=== PATIENT | female | born 1990 | race Two or more races ===

== ENCOUNTER 2025-01-02 07:33 | Emergency (ER) | payer OTHER ==
[~2025-01-02] VITALS: Ht 157.5 cm; Wt 82.5 kg
[2025-01-02] MEDS: ACETAMINOPHEN 325 MG TAB PO ONE (07:44)
[2025-01-02] MEDS: SODIUM CHLORIDE 0.9% 1,000 ML IV ONE (07:45)
--- NOTE | 2025-01-02 07:54 | ED.PDOC ---
GI ASSESSMENT HPI Comments 28-year-old female presented to the emergency department complaining of left flank pain and left abdominal pain for four days with a high fever chills body ache and fatigue Chief Complaint: Flank Pain Time Seen by MD: 07:39 Reviewed Notes: Nurses Notes, Medications, Allergies Allergies: Coded Allergies: NO KNOWN ALLERGIES (Unverified , 01/02/25) Information Source: Patient Mode of Arrival: Ambulatory Timing: Days Duration: Since onset Quality: Aching, Cramping Vomitus: Other Stool: Normal Severity: Moderate Recent: None Recent Hx of: None Pain Location: Other (Left flank and left abdominal pain) Modifying Factors: Nothing Associated sign and symptoms: Abdominal Pain, Fever Past Medical History PAST MEDICAL HISTORY: Denies Surgical History: Denies all surgeries MANAGER OF CASE MANAGEMENT History: No Pertinent MANAGER OF CASE MANAGEMENT History Family History Family History: Reviewed,noncontributory to illness, No family hx of Cancer, No family hx of DM, No family hx of Heart min, No family hx of HTN, No family hx ofKidney min, No family hx of Liver min, No family hx of Lung min, No family hx of Stroke Social History Smoker: Non-Smoker Alcohol: Denies ETOH Use Drugs: Denies Drug Use Lives In: Home Constitutional: reports: chills, fatigue, fever; denies: diaphoresis, malaise, sweats, weakness, others EENTM: denies: blurred vision, double vision, ear bleeding, ear discharge, ear drainage, ear pain, ear ringing, eye pain, eye redness, hearing loss, mouth pain, mouth swelling, nasal discharge, nose bleeding, nose congestion, nose pain, photophobia, tearing, throat pain, throat swelling, voice changes, others Respiratory: denies: cough, hemoptysis, orthopnea, SOB at rest, shortness of breath, SOB with excertion, stridor, wheezing, others Cardiovascular: denies: chest pain, dizzy spells, diaphoresis, Dyspnea on exertion, edema, irregular heart beat, left arm pain, lightheadedness, palpitations, PND, syncope, others Gastrointestinal: reports: abdominal pain Genitourinary: reports: flank pain, pain; denies: abnormal vagina bleeding, burning, dyspareunia, dysuria, frequency, hematuria, incontinence, , vagina discharge, urgency, others Neurological: denies: dizziness, fainting, headache, left sided numbness, left sided weakness, numbness, paresthesia, pre-existing deficit, right sided numbness, right sided weakness, seizure, speech problems, tingling, tremors, weakness, others Musculoskeletal: reports: back pain; denies: gout, joint pain, joint swelling, muscle pain, muscle stiffness, neck pain, others Integumetry: denies: bruises, change in color, change in hair/nails, dryness, laceration, lesions, lumps, rash, wounds, others Allergic/Immunocompromised: denies: Difficulty Healing, Frequent Infections, Hives, Itching, others Hematologic/Lymphatic: denies: anemia, blood clots, easy bleeding, easy bruising, swollen glands, others Endocrine: denies: excessive hunger, excessive sweating, excessive thirst, excessive urination, flushing, intolerance to cold, intolerance to heat, unexplained weight gain, unexplained weight loss, others Psychiatric: denies: anxiety, bipolar disorder, depression, hopeless, panic disorder, schizophrenia, sleepless, suicidal, others All Other Systems: Reviewed and Negative Physical Exam General Appearance: No Apparent Distress, Obese HEENT: Normal ENT Inspection, PERRL/EOMI Neck: Full Range of Motion, Non-Tender, Normal, Normal Inspection Respiratory: Chest Non-Tender, Lungs Clear, No Accessory Muscle Use, No Respiratory Distress, Normal Breath Sounds Cardiovascular: No Edema, No JVD, No Murmur, No Gallop, Normal Peripheral Pulses, Regular Rate/Rhythm Breast Exam: Deferred Gastrointestinal: LLQ, LUQ, No Organomegaly, No Pulsatile Mass, Normal Bowel Sounds, Other (Left flank pain) Genitalia: Deferred Pelvic: Deferred Rectal: Deferred Extremities: No calf tenderness, Normal capillary refill, Normal inspection, Normal range of motion, Non-tender, No pedal edema Neurologic: Alert, clinical rehab specialist II-XII nml as Tested, No Motor Deficits, Normal Affect, Normal Mood, No Sensory Deficits Cerebellar Function: Normal Reflexes: Normal Skin: Dry, Normal Color, Warm Peripheral Pulses: 1+ carotid (R), 1+ carotid (L) Lymphatic: No Adenopathy Was a procedure done? Was a procedure done?: No GI differential Dx Differential Diagnosis: Diverticular disease, Inflammatory BD, UTI, Dehydration, Diabetes/ DKA, Drug toxicity, Electrolyte Imbalance, Kidney Stone X-Ray, Labs, Meds, VS Vital Signs Date Time Temp Pulse Resp B/P (MAP) Pulse Ox O2 Delivery O2 Flow Rate FiO2 01/02/25 10:15 102 17 97 Room Air 01/02/25 10:15 98.4 102 17 121/79 (93) 97 98.4 01/02/25 09:19 114 16 97 Room Air* 0 21 01/02/25 07:44 100.5 01/02/25 07:35 100.5 121 18 160/95 (116) 95 100.5 01/02/25 07:35 100.5 121 18 160/95 (116) 95 100.5 Lab Test 01/02/25 08:02 01/02/25 08:00 Range/Units Urine Color Colorless Yellow Urine Clarity Clear Clear Urine pH 6.5 5.0-9.0 Urine Specific [place] 1.009 1.001-1.035 Urine Protein Negative Negative Urine Ketones Negative Negative Urine Blood 2+ H Negative /uL Urine Nitrite Negative Negative Urine Bilirubin Negative Negative Urine Urobilinogen Normal Negative mg/dL Urine Leukocyte Esterase 2+ Negative /uL Urine RBC 17 0 - 4 /hpf Urine Microscopic WBC 77 H 0-5 /HPF Urine Squamous Epithelial Cells Few <5 /hpf Urine Bacteria Few H None Seen /hpf Urine Glucose Normal Normal mg/dL White Blood Count 14.4 H 4.4-10.8 10^3/uL Red Blood Count 4.41 4.0-5.20 10^6/uL Hemoglobin 13.0 12.2-16.2 g/dL Hematocrit 38.4 36.0-46.0 % Mean Corpuscular Volume 87.1 80.0-100.0 fL Mean Corpuscular Hemoglobin 29.4 28.0-32.0 pg Mean Corpuscular Hemoglobin Concent 33.7 32.0-36.0 g/dL Red Cell Distribution Width 13.4 11.8-14.3 % Platelet Count 197 140-450 10^3/uL Mean Platelet Volume 8.3 6.9-10.8 fL Neutrophils (%) (Auto) 85.0 H 37.0-80.0 % Lymphocytes (%) (Auto) 8.3 L 10.0-50.0 % Monocytes (%) (Auto) 6.2 0.0-12.0 % Eosinophils (%) (Auto) 0.2 0.0-7.0 % Basophils (%) (Auto) 0.3 0.0-2.0 % Neutrophils # (Auto) 12.2 H 1.6-8.6 10 ^3/uL Lymphocytes # (Auto) 1.2 0.4-5.4 10 ^3/uL Monocytes # (Auto) 0.9 0-1.3 10 ^3/uL Eosinophils # (Auto) 0 0-0.8 10 ^3/uL Basophils # (Auto) 0 0-0.2 10 ^3/uL Nucleated Red Blood Cells 0.1 % Sodium Level 137 136-145 mmol/L Potassium Level 3.7 3.5-5.1 mmol/L Chloride Level 102 98-107 mmol/L Carbon Dioxide Level 25 20-31 mmol/L Anion Gap 10 5-15 Blood Urea Nitrogen 9 9-23 mg/dL Creatinine 0.94 0.550-1.02 mg/dL Glomerular Filtration Rate Calc 82 >90 mL/min BUN/Creatinine Ratio 9.6 L 10.0-20.0 Serum Glucose 122 H 74-106 mg/dL Calcium Level 9.8 8.7-10.4 mg/dL Current Medications Medications (Trade) Dose Ordered Sig/Paz Route Start Time Stop Time Status Last Admin Acetaminophen (Tylenol Tablet) 650 mg ONCE ONCE PO 01/02/25 07:45 01/02/25 07:46 DC 01/02/25 07:44 Sodium Chloride 1,000 ml @ 150 mls/hr Q6H40M ONCE IV 01/02/25 07:45 01/02/25 14:24 01/02/25 07:45 Ibuprofen (Motrin Tablet) 600 mg ONCE ONCE PO 01/02/25 07:45 01/02/25 07:47 DC 01/02/25 09:17 X-Ray, Labs, Meds, VS Comment Course in the emergency department eventful patient came in complaining of high fever for past four days with body ache fatigue and left flank pain Temperature is 100.5 CBC [id number] with 85% neutrophils and normal H&H BNP is normal Urine shows 2+ blood 2+ leukocyte esterase and bacteria Patient will be discharged home to follow up with her PCP Time of 1ST Reevaluation: 07:50 Reevaluation 1ST: Unchanged Time of 2ND Reevaluation: 12:11 Reevaluation 2ND: Unchanged Consultation: PCP Patient Education/Counseling: Diagnosis, Treatment, Prognosis Family Education/Counseling: Diagnosis, Treatment, Prognosis, No Family Present SEPSIS Sepsis Screen Physician Orders Heplock Iv (01/02/25 07:45) Sodium Chloride 0.9% (01/02/25 07:45) Vital Signs Date Time Temp Pulse Resp B/P (MAP) Pulse Ox O2 Delivery O2 Flow Rate FiO2 01/02/25 10:15 102 17 97 Room Air 01/02/25 10:15 98.4 102 17 121/79 (93) 97 98.4 01/02/25 09:19 114 16 97 Room Air* 0 21 01/02/25 07:44 100.5 01/02/25 07:35 100.5 121 18 160/95 (116) 95 100.5 01/02/25 07:35 100.5 121 18 160/95 (116) 95 100.5 Laboratory Tests Test 01/02/25 08:00 White Blood Count 14.4 10^3/uL (4.4-10.8) H Medications Medications Dose Ordered Sig/Paz Route Start Time Stop Time Status Last Admin Dose Admin Acetaminophen 650 mg ONCE ONCE PO 01/02/25 07:45 01/02/25 07:46 DC 01/02/25 07:44 Ibuprofen 600 mg ONCE ONCE PO 01/02/25 07:45 01/02/25 07:47 DC 01/02/25 09:17 Sodium Chloride 1,000 ml @ 150 mls/hr Q6H40M ONCE IV 01/02/25 07:45 01/02/25 14:24 01/02/25 07:45 Departure 1 Departure Time of Disposition: 12:11 Impression: Primary Impression: Pyelonephritis Additional Impression: Acute left flank pain Disposition: 01 HOME / SELF CARE / HOMELESS Condition: Fair Additional Instructions: Follow up with your PCP e-Prescriptions Acetaminophen (Acetaminophen Extra Stren) 500 Mg Tab 500 MG PO QID for 10 Days, #40 TAB Prov: TAIWO LUCIA MD 01/02/25 Ciprofloxacin Hcl (Cipro) 500 Mg Tab 1 TAB PO BID for 10 Days, #20 TAB Prov: TAIWO LUCIA MD 01/02/25 Discharged With: Self Critical Care Note Critical Care Time?: No Stability Stability form required: No Heart Score Heart Score: Heart Score Response (Comments) Value History N/A 0 EKG N/A 0 Age <45 0 Risk Factors No known risk factors 0 Troponin N/A 0 Total 0 TAIWO LUCIA MD Jan 02, 2025 07:53
[2025-01-02 08:13] LABS: Basophils # (auto) 0 10 ^3/uL (0-0.2); Basophils % (auto) 0.3 % (0.0-2.0); Eosinophils # (auto) 0 10 ^3/uL (0-0.8); Eosinophils % (auto) 0.2 % (0.0-7.0); Hematocrit 38.4 % (36.0-46.0); Lymphocytes # (auto) 1.2 10 ^3/uL (0.4-5.4); Lymphocytes % (auto) 8.3 % (10.0-50.0); Mean Corpuscular Hemoglobin 29.4 pg (28.0-32.0); Mean Corpuscular Hgb Conc. 33.7 g/dL (32.0-36.0); Mean Corpuscular Volume 87.1 fL (80.0-100.0); Monocytes # (auto) 0.9 10 ^3/uL (0-1.3); Monocytes % (auto) 6.2 % (0.0-12.0); Neutrophils # (auto) 12.2 10 ^3/uL (1.6-8.6); Nucleated Red Blood Cells % 0.1 %; Platelet Count (auto) 197 10^3/uL (140-450); Red Blood Cells 4.41 10^6/uL (4.0-5.20); Red Cell Distribution Width 13.4 % (11.8-14.3); White Blood Cell 14.4 10^3/uL (4.4-10.8)
[2025-01-02 08:19] LABS: Chloride 102 mmol/L (98-107); Potassium 3.7 mmol/L (3.5-5.1); Sodium 137 mmol/L (136-145)
[2025-01-02 08:20] LABS: Anion Gap 10 (5-15); Calcium 9.8 mg/dL (8.7-10.4); Carbon Dioxide 25 mmol/L (20-31)
[2025-01-02 08:25] LABS: BUN/Creatinine Ratio 9.6 (10.0-20.0); Blood Urea Nitrogen 9 mg/dL (9-23)
[2025-01-02 08:35] LABS: Glucose 122 mg/dL (74-106)
[2025-01-02] MEDS: IBUPROFEN 600 MG TAB PO ONE (09:17)
[2025-01-02 09:19] VITALS: PULSE 114; RESP 16; O2SAT 97
[2025-01-02 10:52] LABS: Urine Bacteria FEW /hpf (None Seen); Urine Blood 2+ /uL (Negative); Urine Clarity Clear (Clear); Urine Color Colorless (Yellow); Urine Protein, UAD Negative (Negative); Urine Specific Gravity 1.009 (1.001-1.035); Urine Squamous Epithelial Cell FEW /hpf (<5); Urine Urobilinogen Normal (Negative); Urine WBC 77 /HPF (0-5); Urine pH 6.5 (5.0-9.0)
[2025-01-02] MEDS ORDERED: ACET-6 PO (12:14)
[2025-01-02] MEDS ORDERED: CIPR-173 PO (12:14)
[2025-01-02 12:17] VITALS: BP 126/73; PULSE 100; RESP 18; TEMP 98.1; O2SAT 99
== END 2025-01-02 12:27 | disposition home or self-care (01) ==
LOC: ER 07:33 → EDBD 07:33 → ER 12:27
DX: N12 Tubulo-interstitial nephritis, not specified as acute or chronic (principal); R10.12 Left upper quadrant pain
CPT/HCPCS: 36415; 80048; 81001; 85025; 96360; 96361; 99283; J7030